=== PATIENT | female | born 1960 | race Two or more races ===

== ENCOUNTER → 2017-01-02 | Outpatient (CLI) | payer BC ==
[~2017-01-02] MED LIST: SYNTHROID88 MCG ORAL
--- NOTE | 2017-01-02 10:32 | GI Initial Consult Note ---
History of Present Illness General Date patient seen: Jan 02, 2017 Time patient seen: 10:26 Referring physician: STEPHAN Reason for Consultation: RECTAL BLEED Present Illness HPI 56 year old female patient presents today for evaluation of mild constipation and rectal bleed. No previous history of colonoscopy. Home Meds Reported Medications Levothyroxine Sodium* (SYNTHROID*) 88 Mcg Tablet, 88 MCG ORAL DAILY, TAB Take in the morning on an empty stomach, at least 30 minutes before food. 01/02/17 Allergies: Coded Allergies: No Known Allergies (Unverified , 01/02/17) Patient History History Provided By: Patient PMH Narrative Hypothyroidism back pain PSHx x 3 dental implant Social History: Reports: other - coffee Review of Systems All Other Systems: negative except mentioned in HPI Physical Exam T 98.4 BP 116/73 P 87 98 RA HT 5'3 WT 139 lbs Sp02 EP Interpretation: reviewed General Appearance: well appearing, no apparent distress, alert Head: normocephalic EENT: PERRL/EOMI, normal ENT inspection Neck: normal inspection, full range of motion, supple Respiratory: normal breath sounds, no respiratory distress Cardiovascular: normal rate Gastrointestinal: normal inspection, non tender, soft, normal bowel sounds Rectal: deferred Musculoskeletal: normal inspection, back normal Neurologic: alert, oriented x3, responsive Psychiatric: normal inspection, judgement/insight normal, memory normal Skin: normal inspection, normal color, no rash, warm/dry Lymphatic: no adenopathy GI: Plan Problems: (1) Colonoscopy planned (2) Rectal bleed (3) Constipation (4) Hypothyroidism Plan Colonoscopy will be scheduled pending prior auth, will contact patient. - CL[facility] & [employer] prep instructions given and acknowledged. Seen with Dr. Alvarado. Thank you for referring this kind patient. Sarita Mercado N.P. Jan 02, 2017 10:32
[2017-01-02 16:48] VITALS: BP 116/73
== END | disposition home or self-care (01) ==
LOC: PAN 09:42
DX: K59.00 Constipation, unspecified (principal); E03.9 Hypothyroidism, unspecified; K62.5 Hemorrhage of anus and rectum; M54.9 Dorsalgia, unspecified
CPT/HCPCS: 99201

== ENCOUNTER 2017-03-26 07:10 | Day surgery (SDC) | payer BC ==
[2017-03-26] VITALS (8 sets, daily range): BP systolic 109–129; BP diastolic 72–80
[~2017-03-26] VITALS: Ht 162.6 cm; Wt 63.5 kg
--- NOTE | 2017-03-26 06:14 | Anethesia Preoperative Eval ---
Anesthesia Pre-op PMH/ROS General Date of Evaluation: Mar 26, 2017 Time of Evaluation: 09:05 Anesthesiologist: eliceo ASA Score: ASA 2 Mallampati Score Class I : Soft palate, uvula, fauces, pillars visible Class II: Soft palate, uvula, fauces visible Class III: Soft palate, base of uvula visible Class IV: Only hard plate visible Mallampati Classification: Class II Surgeon: brenna Diagnosis: rectal bleed Surgical Procedure: colon screening Social History: smoking - non smoker Family History: no anesthesia problems Allergies: Coded Allergies: No Known Allergies (Unverified , 01/02/17) Medications: see eMAR Past Medical History Gastrointestinal/Genitourinary: Reports: other - constipation, rectal bleeding Endocrine: Reports: hypothyroidism Anesthesia Pre-op Phys. Exam Physician Exam Last Vital Signs Date Time Temp Pulse Resp B/P Pulse Ox O2 Delivery O2 Flow Rate FiO2 03/26/17 07:47 97.7 74 20 124/75 98 Room Air Constitutional: NAD Neurologic: CN 2-12 intact Cardiovascular: RRR Respiratory: CTA Gastrointestinal: S/NT/ND Airway Exam Mallampati Score: Class II MO: full Neck: supple TMD: 3fb ROM: full Teeth: intact Anesthesia Pre-op A/P Studies Pre-op Studies: EKG - nsr Risk Assessment & Plan Assessment: rectal bleeding Plan: colonoscopy Status Change Before Surgery: No Pre-Antibiotics Drug: JOSÉ MIGUEL Maynard Mar 26, 2017 06:14
[2017-03-26] MEDS ORDERED: SIMVASTATIN40 MG ORAL (07:42)
[2017-03-26] MEDS ORDERED: Lidocaine 1% MPF 10mg/ml 5ml ONE (09:00)
[2017-03-26] MEDS ORDERED: Propofol 10mg/ml 20ml IV ONE (09:00)
--- NOTE | 2017-03-26 09:12 | Pre-Procedure Note/Attestation ---
Pre-Procedure Note/Attestation Complete Prior to Procedure Planned Procedure: not applicable Procedure Narrative: colonoscopy Indications for Procedure Pre-Operative Diagnosis: screening Attestation I attest that I discussed the nature of the procedure; its benefits; risks and complications; and alternatives (and the risks and benefits of such alternatives ), prior to the procedure, with the patient (or the patient's legal treasury representative). I attest that, if there was a reasonable possibility of needing a blood transfusion, the patient (or the patient's legal treasury representative) was given the [facility] standardized written summary, pursuant to the Christoph [place] Blood Safety Act ([place] Health and Safety Code # 1645, as amended). I attest that I re-evaluated the patient just prior to the surgery and that there has been no change in the patient's H&P, except as documented below: ANNAMARIE KHAN Mar 26, 2017 09:12
--- NOTE | 2017-03-26 09:12 | Short Stay Surgery H&P ---
History of Present Illness History of Present Illness Chief Complaint see recent H&P HPI Meagan Oswald is a 56 year old female who was admitted on for Colon Screening Patient History Allergies: Coded Allergies: No Known Allergies (Unverified , 01/02/17) PAST MEDICAL HISTORY: Past Surgeries: Social History: Medication History Scheduled Levothyroxine Sodium* (Synthroid*), 88 MCG ORAL DAILY, (Reported) Simvastatin (Zocor), 40 MG ORAL BEDTIME, (Reported) Physical Exam Vital Signs Last Vital Signs Date Time Temp Pulse Resp B/P Pulse Ox O2 Delivery O2 Flow Rate FiO2 03/26/17 07:47 97.7 74 20 124/75 98 Room Air Plan Attestation Are the patient's medical conditions optimized for surgery? ANNAMARIE KHAN Mar 26, 2017 09:12
[2017-03-26] MEDS ORDERED: Midazolam 2mg/2ml Inj IVP PRN (09:30)
[2017-03-26] MEDS ORDERED: Atropine Inj 1mg/10ml Syr IV PRN (09:30)
[2017-03-26] MEDS ORDERED: Hydromorphone 0.5mg/0.5ml inj IVP PRN (09:30)
[2017-03-26] MEDS ORDERED: DiphenhydrAMINE 50mg/ml Inj IVP PRN (09:30)
--- NOTE | 2017-03-26 09:34 | Endoscopy Procedure Note ---
Endoscopy Procedure Note Indication for Procedure: screening Procedures Performed: colonoscopy Operative Findings/Diagnosis: hemorrhoids Specimen: none Pt Tolerated Procedure Well: Yes Estimated Blood Loss: none Anesthesiologist: lima Anesthesia: MAC Implant(s) used?: No 50 yrs or older w/o bx or poly: Yes 10yrs. F/U not recommended: Yes If not recommended, why?: Above average risk 10 yrs. F/U needed: Yes 18 years or older w/prev. colo: No ANNAMARIE KHAN Mar 26, 2017 09:33
--- NOTE | 2017-03-26 09:34 | Immediate Post-Op Evaluation ---
Immediate Post-Op Evalulation Immediate Post-Op Evalulation Procedure: colonoscopy Date of Evaluation: Mar 26, 2017 Time of Evaluation: 09:46 IV Fluids: ns Blood Products: none Estimated Blood Loss: negligible Urinary Output: 0 Blood Pressure Systolic: 109 Blood Pressure Diastolic: 70 Pulse Rate: 60 Respiratory Rate: 18 O2 Sat by Pulse Oximetry: 98 Temperature (Fahrenheit): 97.5 Pain Score (1-10): 0 Nausea: No Vomiting: No Complications none Patient Status: awake, reacts, patent Hydration Status: adequate Drug: JOSÉ MIGUEL Maynard Mar 26, 2017 09:34
--- NOTE | 2017-03-26 09:45 | 48 Hour Post Anesthesia Eval ---
Post Anesthesia Evaluation Procedure: colonoscopy Date of Evaluation: Mar 26, 2017 Time of Evaluation: 09:49 Blood Pressure Systolic: 111 0: 72 Pulse Rate: 61 Respiratory Rate: 18 Temperature (Fahrenheit): 97.5 O2 Sat by Pulse Oximetry: 99 Airway: patent Nausea: No Vomiting: No Pain Intensity: 0 Hydration Status: adequate Cardiopulmonary Status: stable Mental Status/LOC: patient returned to baseline Post-Anesthesia Complications: none Follow-up care needed: N/A JOSÉ MIGUEL MENDEZ Mar 26, 2017 09:45
--- NOTE | 2017-03-26 16:01 | Procedure Note ---
DATE OF PROCEDURE: 03/26/2017 PROCEDURE: Colonoscopy. SURGEON: Breezy Alvarado M.D. ANESTHESIOLOGIST: Alicia Haq M.D. INSTRUMENT: Olympus adult flexible colonoscope. INDICATION: Screening colonoscopy evaluation. The procedure, risks, benefits, and possible consequences, including hemorrhage, aspiration, perforation and infection, and alternative treatments, were explained to the patient/legal guardian by Dr. Breezy Alvarado and the patient/legal guardian understood and accepted these risks. PROCEDURE IN DETAIL: After Informed consent was obtained and the patient was adequately sedated, a rectal examination was performed which was normal, The scope was advanced into the rectum to the cecum identified by the appendiceal orifice, ileocecal valve and right upper quadrant palpation. Quality of prep was very good. The patient had normal colonoscopy examination without any other pathology seen. No mass, no polyp, no diverticulosis. Retroflexion of rectum showed a few small nonbleeding internal hemorrhoids. SUMMARY OF FINDINGS: Normal colonoscopy examination except for internal hemorrhoids. RECOMMENDATIONS: Repeat colonoscopy in 10 years. I want to thank, Dr. Mata, for this kind referral. Breezy Alvarado M.D. DR: SALVADOR JOB#: [id number] CC: Jessa Mata M.D.; Fax#: [phone]
== END 2017-03-26 11:00 | disposition home or self-care (01) ==
LOC: GAS 07:10
DX: Z12.11 Encounter for screening for malignant neoplasm of colon (principal); K62.5 Hemorrhage of anus and rectum; K64.8 Other hemorrhoids; K59.00 Constipation, unspecified; E03.9 Hypothyroidism, unspecified
CPT/HCPCS: 45378; 93005; J2704; 94003; 94150

== ENCOUNTER 2019-09-26 22:21 | Emergency (ER) | payer BC, OTHER ==
[~2019-09-26] VITALS: Ht 162.6 cm; Wt 72.6 kg
[~2019-09-26 22:21] MED LIST changes: +SIMVASTATIN40 MG ORAL
[2019-09-26 22:27] VITALS: BP 172/97
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
[2019-09-26] MEDS ORDERED: IBUPROFEN600 MG ORAL (22:57)
[2019-09-26 23:05] VITALS: BP 172/97
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
== END 2019-09-26 23:05 | disposition home or self-care (01) ==
LOC: EDBD 22:21 → EMR 22:34
DX: S43.401A Unspecified sprain of right shoulder joint, initial encounter (principal); S20.211A Contusion of right front wall of thorax, initial encounter; V43.52XA Car driver injured in collision with other type car in traffic accident, initial encounter; Y92.411 Interstate highway as the place of occurrence of the external cause
CPT/HCPCS: 71045; 99284